=== PATIENT | female | born 1965 | race African-American/Black ===

== ENCOUNTER 2017-01-22 13:49 | Emergency (ER) | payer OTHER ==
[2017-01-22 14:11] VITALS: BP 134/83; PULSE 69; TEMP 98.4; BMI 23.6
--- NOTE | 2017-01-22 16:35 | PDOC ---
Suture Removal/Wound Check HPI - History of Present Illness Chief Complaint: Revisit,Wound Recheck Stated Complaint: REVISIT, FOLLOW UP Time Seen by Provider: 01/22/17 15:46 History Source: Yes: Patient Exam Limitations: Yes: No Limitations Treated at: [facility] Date of Last ED visit: 01/19/17 - Previous ED Treatment Type of procedure performed on last visit: Yes: I&D of Abscess Tetanus Immunization: Yes: Up to Date Antibiotics Prescribed: No (had been on antibiotic) Past History - Past Medical History Allergies/Adverse Reactions: Allergies Allergy/AdvReac Type Severity Reaction Status Date / Time No Known Allergies Allergy Verified 01/22/17 14:07 Home Medications: Ambulatory Orders Cefadroxil 500 mg PO ASDIR 01/19/17 Losartan/Hydrochlorothiazide [Losartan-Hctz 100-12.5 mg Tab] 1 each PO ASDIR 11/27 COPD: No HTN: Yes Thyroid Disease: No - Suicide/Smoking/Psychosocial Hx Smoking History: Never smoked Have you smoked in the past 12 months: No Information on smoking cessation initiated: No Hx Alcohol Use: No Drug/Substance Use Hx: No Substance Use Type: None Suture Removal/Wound Check PE - Physical Exam Laceration/Wound Check Symptoms: reports: Pain Comments: 01/22/17 16:35 Proximal occipital scalp mid iodoform packing noted with no surrounding erythema , tender to touch area slight Iodoform packing removed was able to express a moderate amount of white cheese discharge non-odorous 01/22/17 21:41 Current Severity Level: None Maximum Severity Level: Mild (with palpation of area) Location of Laceration/Wound: bilateral: Head (mid proximal scalp) Pain Radiation: None *Review of Systems - Review of Systems Able to Perform ROS?: Yes Constitutional: No: Symptoms Reported HEENTM: No: Symptoms Reported Respiratory: No: Symptoms reported Cardiac (ROS): No: Symptoms Reported ABD/GI: No: Symptoms Reported : No: Symptoms Reported Musculoskeletal: No: Symptoms Reported Integumentary: Yes: Other (mid proximal occipital scalp order iodiform packing in place slight tenderness of area surrounding) Neurological: No: Symptoms reported Procedures - Consent Consent obtained: From Patient - Additional Procedures Progress: 01/22/17 16:39 Remove packing from proximal occipital scalp area mid without complications was able to express moderate amount of white cheese like non odorous discharge irrigated wound with normal saline 0.9%, dry sterile dressing applied No erythema surrounding area, area is tender to touch minimally 01/22/17 21:40 01/22/17 21:41 Medical Decision Making - Medical Decision Making 01/22/17 21:38 Patient here for packing removal of I and D of abscess to proximal occipital mid scalp patient denies any fever, reports that area slightly tender to touch. Patient has an appointment with the surgeon due to this 01/27/2017. wound check with packing removal PLAN: packing removed from proximal occipital mid scalp area wound is able to be expressed and cheesy-like whitish exudate was able to be removed area irrigated with normal saline 0.9% and dry sterile dressing applied Follow up with surgeon *DC/Admit/Observation/Transfer Diagnosis at time of Disposition: Visit for wound check - Discharge Dispostion Disposition: HOME Condition at time of disposition: Stable - Referrals Referrals: Gilberto Cody [Primary Care Provider] - - Patient Instructions Additional Instructions: Follow up with surgeon as previously planned on 01/27/2017 Cleanse area twice daily with antibacterial soap and water pat dry and apply a dry sterile dressing during the day may lead area air out at night Return to emergency room if any fever or redness around wound or increased tenderness or any other symptoms develop Patient voiced understanding of discharge instructions and all questions were answered And thank you for choosing [facility] emergency room for your medical needs today. - Post Discharge Activity Forms/Work/School Notes: Back to Work
== END 2017-01-22 16:48 | disposition home or self-care (01) ==
LOC: JERFT 13:49
DX: Z48.01 Encounter for change or removal of surgical wound dressing (principal)
CPT/HCPCS: 99281-25